=== PATIENT | male | born 1995 | race Caucasian/White ===

== ENCOUNTER → 2017-10-17 | Day surgery (SDC) | payer OTHER ==
[~2017-10-17] VITALS: Ht 175.3 cm; Wt 68.0 kg
--- NOTE | 2017-10-17 13:34 | Operative Report ---
Operative/Inv Procedure Report Surgery Date: 10/17/17 Name of Procedure: Shoulder arthroscopy, anterior labral repair, limited debridement Pre-Operative Diagnosis: Left shoulder Bankart tear Post-Operative Diagnosis: Left shoulder Bankart tear Estimated Blood Loss: scant Surgeon/[employer] Tenant Farmer: Noble BARTLETT,Delroy Pérez APRN Anesthesia: laryngeal mask airway, block Complications: None Condition: Stable to PACU Operative Indication: This is a 21-year-old male who injured his left shoulder after a fall. He sustained a shoulder dislocation. MRI showed a Bankart tear.Risks and benefits of the procedure were discussed with the patient at length. Risks include but are not limited to nerve damage, muscle damage, infection, blood loss, blood clots, pulmonary embolus, and even . The patient agreed to the above risks and elected to proceed with surgery. Operative/Procedure Note Note: The patient was taken to the operating room and placed in the lateral decubitus position with the operative side up after anesthesia was induced. The upper extremity was prepped and draped in the normal sterile fashion. A timeout was performed prior to incision. The site marking was visualized prior to incision. IV antibiotics were given prior to incision. After the upper extremity was prepped and draped a spinal needle was used to insufflate the shoulder joint with saline. An 11 blade was used to incise the skin for the posterior portal placement. The cannula was then placed. The camera was inserted. An anterior portal was established just proximal and lateral to the coracoid with a spinal needle and an 11 blade. The diagnostic arthroscopy was then performed which showed the above findings. The shaver was used to perform a chondroplasty at the anterior inferior glenoid. A shaver was used to debride the glenoid for later labral repair. A blunt probe was used to elevate the anterior capsule labral complex which had scarred medially on the glenoid neck. A cannula was placed through the anterior portal. A percutaneous portal was made just lateral and distal to the anterior portal with spinal needle and an 11 blade. A drill guide was inserted. A 1.8 mm Q-fix mini anchor was placed was placed at the anterior inferior glenoid. The suture was then shuttled deep to the labrum with an AccuPass. This was tied down with a locking knot and several half hitches. Three more anchors were placed sequentially marching superiorly along the glenoid. The drive-through sign was eliminated. All instruments were removed and the shoulder was copiously irrigated. The portal sites were closed with 3-0 nylon suture in a simple interrupted fashion. A dry sterile dressing was placed. A sling was applied. The patient was transferred to PACU in stable condition. Findings: Anterior labral tear from the 6 o'clock position to the 2 o'clock position. Superior labrum intact. Posterior labrum intact. Chondral fraying at the anterior inferior glenoid.
== END ==
LOC: STS 01:38
DX: S43.432A Superior glenoid labrum lesion of left shoulder, initial encounter (principal); M25.312 Other instability, left shoulder; W19.XXXA Unspecified fall, initial encounter
CPT/HCPCS: C9399; J0131; J0690; J2250; J2795